=== PATIENT | female | born 1970 | race Asian ===

== ENCOUNTER 2017-09-24 22:37 | Emergency (ER) | payer OTHER ==
[~2017-09-24] VITALS: Ht 154.9 cm; Wt 36.3 kg
[2017-09-24] MEDS ORDERED: LORAZEPAM 2 MG/1 ML VIAL IV ONE (23:00)
[2017-09-24] MEDS ORDERED: IV NORMAL SALINE 1000 ML BAG IV ONE (23:00)
--- NOTE | 2017-09-24 23:03 | NUR ---
Patient comes in by EMS with c/o SOB/Anxiety. and caregiver at bedside. VSS. Denies CP/Nausea/Vomiting. On day care worker with Sinus Tach noted. Will continue to monitor patient.
[2017-09-24 23:07] LABS: BASOPHILS # (AUTO) 0.1 K/uL (0.0-8.0); BASOPHILS % (AUTO) 0.8 % (0.0-2.0); EOSINOPHILS % (AUTO) 0.3 % (0.0-7.0); HEMATOCRIT 38.8 % (31.2-41.9); HEMOGLOBIN 13.2 g/dL (10.9-14.3); LYMPHOCYTES # (AUTO) 2.4 K/uL (20.0-40.0); LYMPHOCYTES % (AUTO) 34.3 % (20.5-51.5); MEAN CORPUSCULAR HEMOGLOBIN 30.3 uug (24.7-32.8); MEAN CORPUSCULAR HGB CONC 34 g/dL (32.3-35.6); MEAN CORPUSCULAR VOLUME 88.9 fL (75.5-95.3); MONOCYTES # (AUTO) 0.6 K/uL (2.0-10.0); MONOCYTES % (AUTO) 9.3 % (0.0-11.0); NEUTROPHILS # (AUTO) 3.8 K/uL (1.8-8.9); NEUTROPHILS % (AUTO) 55.3 % (38.5-71.5); PLATELET COUNT (AUTO) 253 K/uL (179-408); RED BLOOD CELL COUNT(AUTO) 4.36 MIL/uL (3.63-4.92); WHITE BLOOD COUNT (AUTO) 6.9 K/uL (3.8-11.8)
[2017-09-24] MEDS ORDERED: LORAZEPAM 2 MG/1 ML VIAL ONE (23:16)
[2017-09-24 23:26] LABS: CARBON DIOXIDE 27 mmol/L (21-32); CHLORIDE 96 mmol/L (98-107); CREATININE 0.5 mg/dL (0.6-1.3); GLUCOSE 110 mg/dL (74-106); UREA NITROGEN, BLOOD 10 mg/dL (7-18)
--- NOTE | 2017-09-25 00:13 | NUR ---
Patient in bed, no acute distress noted.
[2017-09-25] MEDS ORDERED: ONDANSETRON IV *ER 4 MG/2 ML VIAL IV ONE (01:30)
[2017-09-25] MEDS ORDERED: ONDANSETRON 4 MG/2 ML VIAL ONE (01:43)
--- NOTE | 2017-09-25 02:20 | NUR ---
Notified [facility] to cancel ambulance transport, patient's taking patient home via private vehicle.
--- NOTE | 2017-09-25 02:32 | NUR ---
Patient discharged to home in stable conditon. Written and verbal after care instructions given. Patient verbalizes understanding of instructions. Ambulated from ER with stable gait. Patient driven home by in private vehicle. Peripheral IV removed prior to dischrage. All belongings with [facility]. [facility].
[2017-09-25 02:38] VITALS: BP 120/72
== END 2017-09-25 02:42 | disposition home or self-care (01) ==
LOC: EDBD 22:39 → ER 22:39
DX: F41.9 Anxiety disorder, unspecified (principal); R06.00 Dyspnea, unspecified
CPT/HCPCS: 36415; 71045; 80048; 83880; 84484; 84703; 85025; 85730; 93005; 96361; 96374; 96375; 99285; A4663 ×2; J2060; J2405; J7030; 70030-TC